=== PATIENT | female | born 1985 | race Caucasian/White ===

== ENCOUNTER 2018-03-18 17:59 | Emergency (ER) | payer MEDICAID ==
[~2018-03-18] VITALS: Ht 160 cm; Wt 120.0 kg
[2018-03-18] MEDS ORDERED: acetaminophen 325mg tablet PO ONE (19:10)
[2018-03-18] MEDS ORDERED: normal saline 1000ML IV soln IVB ONE ×2 (19:10→21:25)
[2018-03-18 19:34] LABS: BASOPHILS % (AUTO) 0.4 % (0-1); EOSINOPHILS # (AUTO) 0.2 X10'3 (0-0.9); EOSINOPHILS % (AUTO) 1.6 % (0-6); HEMATOCRIT 40.3 % (35.0-45.0); HEMOGLOBIN 13.4 g/dl (12.0-16.0); LYMPHOCYTES % (AUTO) 8.9 % (21-51); MEAN CORPUSCULAR HEMOGLOBIN 25.9 PG (27.0-31.0); MEAN CORPUSCULAR HGB CONC 33.2 % (33.0-36.5); MEAN CORPUSCULAR VOLUME 77.8 FL (78-98); MEAN PLATELET VOLUME 7.7 FL (7.4-10.4); MONOCYTES # (AUTO) 0.3 X10'3 (0-0.9); MONOCYTES % (AUTO) 2.7 % (2-12); NEUTROPHILS # (AUTO) 10.1 X10'3 (1.8-7.7); NEUTROPHILS % (AUTO) 86.4 % (42-75); PLATELET COUNT 317 X10'3 (140-440); RED BLOOD COUNT 5.18 X10'6 (4.20-5.60); RED CELL DISTRIBUTION WIDTH 15.6 % (11.5-14.5); WHITE BLOOD COUNT 11.6 X10'3 (4.5-11.0)
[2018-03-18 19:45] LABS: CLARITY,URINE CLEAR (Clear); COLOR,URINE YELLOW (Yellow); GLUCOSE, URINE NEGATIVE (Neg); KETONES,URINE NEGATIVE (Neg); LEUKOCYTE ESTERASE ,URINE NEGATIVE (Neg); NITRITES, URINE NEGATIVE (Neg); OCCULT BLOOD,URINE TRACE-INTACT (Neg); PROTEIN,URINE NEGATIVE (Neg); UROBILINOGEN,URINE 0.2 E.U/dL (0.2-1.0)
[2018-03-18 19:46] LABS: UA COLLECTION TYPE CLN CATCH MIDSTREAM
[2018-03-18 19:48] LABS: ALANINE AMINOTRANSFERASE 18 U/L (12-78); ALBUMIN 3.4 G/DL (3.4-5.0); ALBUMIN/GLOBULIN RATIO 0.8 (1.1-1.5); ALKALINE PHOSPHATASE 97 IU/L (46-116); ANION GAP 10 (8-16); ASPARTATE AMINO TRANSFERASE 17 U/L (10-37); BILIRUBIN,TOTAL 0.6 MG/DL (0.1-1.0); BLOOD UREA NITROGEN 14 MG/DL (7-18); BUN/CREATININE RATIO 18.4 (6.6-38.0); CALCIUM 8.7 MG/DL (8.5-10.1); CHLORIDE 102 MMOL/L (99-107); CREATININE 0.76 MG/DL (0.40-0.90); GLUCOSE 93 MG/DL (70-104); LIPASE 80 U/L (73-393); POTASSIUM 3.6 MMOL/L (3.5-5.1); SODIUM 136 MMOL/L (135-145); TOTAL CARBON DIOXIDE 24.4 MMOL/L (24-32); TOTAL PROTEIN 7.8 G/DL (6.4-8.2); eGFR 89 ML/MIN
[2018-03-18 19:50] LABS: BACTERIA,URINE FEW /HPF (Neg); MUCUS STRANDS MODERATE /LPF (Neg); RBC,URINE 0-2 /HPF (0-2); SQUAMOUS EPITHELIAL CELL,UR MANY /LPF (FEW); WBC,URINE 0-4 /HPF (0-4)
[2018-03-18 20:08] LABS: ANISOCYTOSIS 1+; MICROCYTOSIS 1+; PLATELET ESTIMATE NORMAL
[2018-03-18 20:52] LABS: TOTAL CELLS COUNTED 100
[2018-03-18] MEDS ORDERED: ONDA4TAB12 PO (21:33)
[2018-03-18 22:09] VITALS: BP 117/59
== END 2018-03-18 22:14 | disposition home or self-care (01) ==
LOC: ER 17:59
DX: B34.9 Viral infection, unspecified (principal); D72.829 Elevated white blood cell count, unspecified; E86.0 Dehydration; F17.210 Nicotine dependence, cigarettes, uncomplicated; J45.909 Unspecified asthma, uncomplicated; Z90.89 Acquired absence of other organs; Z88.2 Allergy status to sulfonamides
CPT/HCPCS: 36415; 71046; 80053; 81001; 83690; 85025; 96360; 96361; 99285; J7030

== ENCOUNTER 2020-03-31 08:48 | Emergency (ER) | payer BC, OTHER ==
[~2020-03-31] VITALS: Ht 160 cm; Wt 144.0 kg
[~2020-03-31 08:48] MED LIST: ONDA4TAB12 PO
[2020-03-31 08:54] VITALS: BP 158/80
== END 2020-03-31 10:25 | disposition home or self-care (01) ==
LOC: ER 08:50
DX: S99.912A Unspecified injury of left ankle, initial encounter (principal); J45.909 Unspecified asthma, uncomplicated; F17.200 Nicotine dependence, unspecified, uncomplicated; Z72.89 Other problems related to lifestyle; Z88.2 Allergy status to sulfonamides; Z79.899 Other long term (current) drug therapy; W18.40XA Slipping, tripping and stumbling without falling, unspecified, initial encounter; Y93.89 Activity, other specified; Y92.89 Other specified places as the place of occurrence of the external cause; Y99.8 Other external cause status
CPT/HCPCS: 99284

== ENCOUNTER 2024-11-13 10:09 | Outpatient (CLI) | payer MEDICAID ==
[~2024-11-13 10:09] MED LIST changes: +ONDA-243 PO; -ONDA4TAB12 PO
== END 2024-11-13 23:59 | disposition home or self-care (01) ==
LOC: MRI02 10:09
PROVIDERS: ATTEND Pediatrics Sports Medicine
DX: M19.072 Primary osteoarthritis, left ankle and foot (principal); M77.32 Calcaneal spur, left foot; M72.2 Plantar fascial fibromatosis; M25.572 Pain in left ankle and joints of left foot
CPT/HCPCS: 73721

== ENCOUNTER 2025-10-23 11:52 | Emergency (ER) | payer MEDICAID ==
[~2025-10-23] VITALS: Ht 157.5 cm; Wt 84.9 kg
[2025-10-23 13:19] VITALS: BP 107/66; TEMP 97.5
[2025-10-23] MEDS ORDERED: PRED10TA23 PO (13:28)
--- NOTE | 2025-10-23 13:32 | Physician Documentation ---
History of Present Illness ~ Chief Complaint: Facial Swelling Stated Complaint: FACE SWELLING Time Seen by MD: 13:16 Primary Medical Doctor: none HPI 40-year-old female presents to the ED with a complaint of left-sided face swelling which has increased in severity. She was seen at the clinic and treated with Augmentin and has not seen any resolution of symptoms. Denies any tooth infection denies any tooth pain or intraoral swelling. Denies any submandibular swelling. Denies any postauricular swelling Day of Onset: Oct 23, 2025 Tetanus Within 5 Years: No Medication Reconciliation Allergies: Coded Allergies: Sulfa (Sulfonamide Antibiotics) (Verified Allergy, Intermediate, 10/06/11) Scheduled PRN ONDANSETRON ODT 4mg tablet (Ondansetron Odt), 1 TABLET PO Q6H PRN for nausea/vomiting Past Medical History Past Medical History: Asthma Past Surgical History: abdominal surgery, tonsillectomy Alcohol Use: Occasionally Drug Use: none Lives In: Home Review of Systems All Other Systems at this time: Reviewed and Negative ROS As stated above in the HPI, otherwise all systems are reviewed and negative. Physical Exam Vital Signs: Temperature: 97.5, Source: Temporal, Heart Rate: 74, Respiratory Rate: 14, BP: 107/66, Pulse Oximetry: 98, Weight: 84.900 Oxygen Flow Rate: 0 Physical Exam General: Alert, no apparent distress. HEENT: PERRL, EOMI, no injection, moist mucous membranes. Notable swelling in the preauricular region where the parotid gland lies on the left side Neck: Full range of motion. Respiratory: Lungs clear, no respiratory distress. Neurologic: Oriented x4. Psychiatric: Normal mood and affect. Skin: Normal color, warm and dry. No edema, no ecchymosis. Progress Results/Orders Results/Orders Vital Signs 10/23/25 10/23/25 12:04 13:19 Temp 97.5 97.5 Pulse 74 74 Resp 18 14 B/P (MAP) 118/74 107/66 (80) Pulse Ox 99 98 O2 Flow Rate 0 0 Medical Decision Making Additional information obtaine: old records Findings This patient presents with ongoing left-sided facial swelling and was previously prescribed oral antibiotics. She has not seen any resolution of symptoms I believe this is because she does not have a soft tissue infection. Rather she have has reactive lymphadenopathy of the parotid gland I am going to start her steroids here in the ED and discharge her with prednisone Differential Dx:Considerations: Include: Abrasion, Contusion, Cerebral contusion, Cervical spine injury, Closed head injury, Encephalopathy, Foreign body, Fracture, facial, Intoxication-alcohol, Intoxication-other drug, Laceration, Other Departure Disposition: 01 HOME / SELF CARE / HOMELESS Impression: Primary Impression: Reactive lymphadenopathy Referrals: NO PRIMARY CARE PROVIDER (PCP) Prescriptions Prednisone (Prednisone) 10 Mg Tablet 1 TAB PO BID for 5 Days, #10 TAB Prov: OLVIN YARBROUGH NP 10/23/25 Signature Scribe Signature: y Attestation: Scribed for Olvin Yarbrough Machine Setup Operator by Olvin Bueno NP . 10/23/25 13:27 OLVIN YARBROUGH NP Oct 23, 2025 13:32
[2025-10-23] MEDS: dexamethasone sod phosphate 10mg/ml inj PO STA (13:50)
[2025-10-23 13:58] VITALS: PULSE 73; RESP 14; O2SAT 99
== END 2025-10-23 13:59 | disposition home or self-care (01) ==
LOC: ER 11:53
DX: R59.1 Generalized enlarged lymph nodes (principal); J45.909 Unspecified asthma, uncomplicated; Z90.89 Acquired absence of other organs; Z88.2 Allergy status to sulfonamides
CPT/HCPCS: 99283; J1100